=== PATIENT | female | born 1950 | race African-American/Black ===

== ENCOUNTER → 2016-05-01 | Emergency (ER) | payer MEDICARE, MEDICAID ==
[~2016-05-01] VITALS: Ht 157.5 cm; Wt 72.6 kg
[~2016-05-01] MED LIST: ACETAMINOPHEN-1 EAC2 ORAL; ALBUTEROL SULF8.5 GM INH; ALLOPURINOL100 M1 ORAL; CARVEDILOL25 MG ORAL; COLCHICINE0.6 MG ORAL; DESCOVY 200-251 EACH PO; DIPHENHYDRAMINE25 M1 ORAL; EDURANT25 MG PO; FUROSEMIDE80 MG ORAL; IMDUR30 MG ORAL; INDOMETHACIN75 MG ORAL; LANOXIN125 MCG ORAL; LEVAQUIN500 MG ORAL; LIDOCAINE VISCO20 ML PO; LISINOPRIL5 MG ORAL; METOPROLOL SUCC50 MG ORAL; NEVIRAPINE200 MG ORAL; NORCO 5-325 TA1 EACH ORAL; NYSTATIN100000 UN1 ORAL; PRADAXA150 MG ORAL; PREDNISONE20 MG ORAL; PROMETHAZINE-C118 M1 ORAL; PredniSONE 20mg tab ORAL ONE; SPIRONOLACTONE25 MG ORAL; TRUVADA1 TAB ORAL; VICODIN ES 7.51 EACH ORAL; VITAMIN D350000 UNIT ORAL
[2016-05-02 00:02] VITALS: BP_SYST 101; BP_SYST 99; BP_DIAS 68
--- NOTE | 2016-05-02 04:16 | Emergency Room Report ---
History of Present Illness General Chief Complaint: Skin Rash/Abscess Source: Patient Present Illness HPI 65-year-old female present to ED complaining of rash and itchiness. Patient states symptoms started yesterday after she started some new antibiotics that she was prescribed after receiving endoscopy. Patient was started on Levaquin and doxycycline. Patient notes allergies to multiple antibiotics. Patient notes itchiness. Notes rash to arms and face. denies any swollen lips are swollen tongue. Denies any shortness of breath or difficulty breathing. No other aggravating relieving factors. Denies any other associated symptom Allergies: Coded Allergies: CARBAMAZEPINE (Verified Allergy, Intermediate, 09/23/12) MADE SKIN PEEL SULFAMETHOXAZOLE (Verified Allergy, Intermediate, Rash, 09/23/12) TRIMETHOPRIM (Verified Allergy, Intermediate, Rash, 09/23/12) ERYTHROMYCIN BASE (Verified Allergy, Unknown, SKIN SLOUGHING, 11/17/10) PENICILLIN (Verified Allergy, Unknown, 01/24/15) PENICILLINS (Verified Allergy, Unknown, RASH, 11/17/10) SULFA (SULFONAMIDE ANTIBIOTICS) (Verified Allergy, Unknown, RASH, 11/17/10) Patient History Past Medical History: CHF, HIV Past Surgical History: none, pacemaker Pertinent Family History: none Social History: Denies: alcohol use, drug use, smoking Last Menstrual Period: NA Now: No Immunizations: UTD Reviewed Nursing Documentation: PMH: Agreed, PSxH: Agreed Nursing Documentation-PMH Hx Cardiac Problems: Yes - CHF, ITP, HIV Hx Hypertension: Yes - CHF Hx Pacemaker: Yes - DEFIBRILLATOR Hx Asthma: No Hx COPD: Yes Hx Diabetes: No Hx Cancer: No Hx Dialysis: No Hx Neurological Problems: Yes Hx Cerebrovascular Accident: No Hx Transient Ischemic Attacks: No Hx Dementia: No Hx Alzheimer's Disease: No Hx Parkinson's Disease: No Hx Meningitis: No Hx Encephalitis: No Hx Seizures: Yes - 10 years ago Hx Epilepsy: Yes Hx Multiple Sclerosis: No Hx Cerebral Palsy: No Hx Amyotrophic Lat Sclerosis: No Hx Guillian-[place] Syndrome: No Hx Paralysis: No Hx Peripheral Neuropathy: No Hx Spinal Cord Injury: No Hx Head Trauma: No Hx Traumatic Brain Injury: No Hx Memory Loss: No Hx Concentration Difficulty: No Hx Speech Problem: No Hx Tremors: No Hx Vertigo: No Hx Dizziness: No Hx Syncope: No Hx Headaches: No Hx Aphasia: No Hx Dysphasia: No Hx Weakness: No Hx Fatigue: No Hx Neurologic Surgery: No Hx Brain Shunt: No Review of Systems All Other Systems: negative except mentioned in HPI Physical Exam Vital Signs Date Time Temp Pulse Resp B/P Pulse Ox O2 Delivery O2 Flow Rate FiO2 05/01/16 23:30 97.7 88 18 99/68 96 Room Air Sp02 EP Interpretation: reviewed, normal General Appearance: no apparent distress, alert, GCS 15, non-toxic Head: normocephalic Eyes: bilateral eye PERRL, bilateral eye normal inspection ENT: normal ENT inspection Neck: normal inspection Respiratory: normal inspection Cardiovascular #1: normal inspection Gastrointestinal: normal inspection Rectal: deferred Genitourinary: no CVA tenderness Musculoskeletal: normal inspection Neurologic: alert, oriented x3, responsive, motor strength/tone normal, sensory intact, speech normal Psychiatric: normal inspection Skin: other - urticaria noted to arms, chest, neck Lymphatic: normal inspection Medical Decision Making Diagnostic Impression: Primary Impression: Allergic reaction caused by a drug Qualified Codes: T78.40XA - Allergy, unspecified, initial encounter ER Course Hospital Course 65-year-old female presents to ED complaining of itchiness and rash to face, chest and arms Differential diagnoses include: Cellulitis, dermatitis, insect bite, abscess Clinical course Patient placed on stretcher. After initial history, physical exam reveals an elderly female in no acute distress. On exam is evidence of urticaria. no airway compromise. I instructed patient to stop the antibiotics and will require followup to receive new antibiotics. We will treat with Benadryl and prednisone Diagnosis - allergic reaction caused by drug stable and discharged to home with prescription for benedryl, prednisone. Instructed to followup with PMD. Instructed return to ED if symptoms recur or worsen Last Vital Signs Date Time Temp Pulse Resp B/P Pulse Ox O2 Delivery O2 Flow Rate FiO2 05/02/16 00:02 97.7 84 18 101/68 96 Room Air Status: improved Disposition: HOME, SELF-CARE Condition: Stable Scripts Diphenhydramine Hcl* (DIPHENHYDRAMINE HCL*) 25 Mg Capsule 25 MG ORAL Q6H Y for Itching, #30 CAP 0 Refills Prov: AUTUMN BEY M.D. 05/02/16 Prednisone* (PREDNISONE*) 20 Mg Tablet 40 MG ORAL DAILY, #10 TAB Prov: AUTUMN BEY M.D. 05/02/16 Referrals: MANE PASTOR (PCP) Patient Instructions: Antibiotic Medicine AUTUMN BEY M.D. May 02, 2016 04:16
== END | disposition home or self-care (01) ==
LOC: EMR 23:50
DX: T78.40XA Allergy, unspecified, initial encounter (principal); X58.XXXA Exposure to other specified factors, initial encounter; Z88.1 Allergy status to other antibiotic agents; Z88.2 Allergy status to sulfonamides; Z88.0 Allergy status to penicillin; Z88.8 Allergy status to other drugs, medicaments and biological substances; I50.9 Heart failure, unspecified; Z95.0 Presence of cardiac pacemaker; D69.3 Immune thrombocytopenic purpura; G40.909 Epilepsy, unspecified, not intractable, without status epilepticus; L50.9 Urticaria, unspecified
CPT/HCPCS: 99284

== ENCOUNTER 2017-06-28 13:19 | Outpatient (CLI) | payer MEDICARE, MEDICAID ==
[~2017-06-28 13:19] MED LIST changes: -PredniSONE 20mg tab ORAL ONE
--- NOTE | 2017-06-28 15:25 | Diagnostic Imaging Report ---
Indication: Cough Comparison: 08/18/2015 2 views of the chest obtained. No definite infiltrate or pulmonary vascular congestion identified. Pacemaker noted on the left. The heart is enlarged. The aorta is mildly enlarged consistent with atherosclerotic vascular disease. The bones are osteopenic. Impression: No acute disease
== END 2017-06-28 15:19 | disposition home or self-care (01) ==
LOC: RAD 13:19
DX: J40 Bronchitis, not specified as acute or chronic (principal); I51.7 Cardiomegaly; Z95.0 Presence of cardiac pacemaker; M85.80 Other specified disorders of bone density and structure, unspecified site
CPT/HCPCS: 71046

== ENCOUNTER → 2019-07-13 | Emergency (ER) | payer MEDICARE, MEDICAID ==
--- NOTE | 2019-07-13 15:45 | Emergency Room Report ---
History of Present Illness General Chief Complaint: To Be Triaged Present Illness HPI This patient left prior to evaluation by medical provider. Allergies: Coded Allergies: CARBAMAZEPINE (Verified Allergy, Intermediate, 09/23/12) MADE SKIN PEEL SULFAMETHOXAZOLE (Verified Allergy, Intermediate, Rash, 09/23/12) TRIMETHOPRIM (Verified Allergy, Intermediate, Rash, 09/23/12) ERYTHROMYCIN BASE (Verified Allergy, Unknown, SKIN SLOUGHING, 11/17/10) PENICILLIN (Verified Allergy, Unknown, 01/24/15) PENICILLINS (Verified Allergy, Unknown, RASH, 11/17/10) SULFA (SULFONAMIDE ANTIBIOTICS) (Verified Allergy, Unknown, RASH, 11/17/10) Nursing Documentation-PMH Hx Cardiac Problems: Yes - CHF, ITP, HIV Hx Hypertension: Yes - CHF Hx Pacemaker: Yes - DEFIBRILLATOR Hx Asthma: No Hx COPD: Yes Hx Diabetes: No Hx Cancer: No Hx Dialysis: No Hx Neurological Problems: Yes Hx Cerebrovascular Accident: No Hx Transient Ischemic Attacks: No Hx Dementia: No Hx Alzheimer's Disease: No Hx Parkinson's Disease: No Hx Meningitis: No Hx Encephalitis: No Hx Seizures: Yes - 10 years ago Hx Epilepsy: Yes Hx Multiple Sclerosis: No Hx Cerebral Palsy: No Hx Amyotrophic Lat Sclerosis: No Hx Guillian-[place] Syndrome: No Hx Paralysis: No Hx Peripheral Neuropathy: No Hx Spinal Cord Injury: No Hx Head Trauma: No Hx Traumatic Brain Injury: No Hx Memory Loss: No Hx Concentration Difficulty: No Hx Speech Problem: No Hx Tremors: No Hx Vertigo: No Hx Dizziness: No Hx Syncope: No Hx Headaches: No Hx Aphasia: No Hx Dysphasia: No Hx Weakness: No Hx Fatigue: No Hx Neurologic Surgery: No Hx Brain Shunt: No Medical Decision Making PA Attestation Dr. Kohler is my supervising Physician whom patient management has been discussed with. ER Course This patient left prior to evaluation by medical provider. Disposition: LEFT W/OUT BEING SEEN Condition: Unknown Referrals: NOT CHOSEN IPA/,REFERRING (PCP) Luna Mendez July 13, 2019 15:45
== END | disposition left against medical advice (07) ==
LOC: EMR 15:36
DX: Z53.21 Procedure and treatment not carried out due to patient leaving prior to being seen by health care provider (principal)

== ENCOUNTER 2019-07-16 08:42 | Emergency (ER) | payer MEDICARE, MEDICAID ==
[~2019-07-16] VITALS: Ht 157.5 cm; Wt 65.8 kg
--- NOTE | 2019-07-16 09:03 | NUR ---
ED Nurse Note: Patient walked in the ER with complaints of abdominal pain on lower mid area. Denies nausea, vomiting and diarrhea. Patient is ambulatory and AAOx4. Patient doesnt complaint of any chest pain and SOB as of the moment. Patient stated she had a covid test done last month but never had the results. No flu like symptoms, afebrile.
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
--- NOTE | 2019-07-16 09:30 | NUR ---
ED Nurse Note: IV line established. Blood specimen sent
[2019-07-16 09:31] VITALS: BP 134/84
--- NOTE | 2019-07-16 09:36 | NUR ---
ED Nurse Note: Patient went to CT on [place]
[2019-07-16 09:40] LABS: BASOPHILS % (AUTO) 1.4 % (0.0-2.0); HEMATOCRIT 41.2 % (37.0-47.0); HEMOGLOBIN 12.7 G/DL (12.0-16.0); LYMPHOCYTES % (AUTO) 40.5 % (20.0-45.0); MEAN CORPUSCULAR VOLUME 103 FL (80-99); MONOCYTES % (AUTO) 6.8 % (1.0-10.0); NEUTROPHILS % (AUTO) 50.2 % (45.0-75.0); PLATELET COUNT 178 K/UL (150-450); RED BLOOD COUNT 4.02 M/UL (4.20-5.40); RED CELL DISTRIBUTION WIDTH 17.1 % (11.6-14.8); WHITE BLOOD COUNT 12.7 K/UL (4.8-10.8)
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
[2019-07-16 10:19] LABS: ALANINE AMINOTRANSFERASE 31 U/L (12-78); ALBUMIN 3.3 G/DL (3.4-5.0); ALBUMIN/GLOBULIN RATIO 0.7 (1.0-2.7); ALKALINE PHOSPHATASE 120 U/L (46-116); ANION GAP 6 mmol/L (5-15); ASPARTATE AMINO TRANSFERASE 64 U/L (15-37); BILIRUBIN,TOTAL 0.5 MG/DL (0.2-1.0); BLOOD UREA NITROGEN 27 mg/dL (7-18); CALCIUM 9.4 MG/DL (8.5-10.1); CARBON DIOXIDE 24 MMOL/L (21-32); CHLORIDE 108 MMOL/L (98-107); CREATININE 1.2 MG/DL (0.55-1.30); SODIUM 138 MMOL/L (136-145)
[2019-07-16 10:30] LABS: POTASSIUM 6.8 MMOL/L (3.5-5.1)
[2019-07-16 10:35] VITALS: BP 127/80
--- NOTE | 2019-07-16 10:35 | NUR ---
ELOPEMENT: Patient eloped at the ER. ERMD aware and notiied. Patient is AAOx4. All of patients belongings was taken by the patient. Vital signs stable. Patient not in distress. IV site and ID band removed.
== END 2019-07-16 10:35 | disposition left against medical advice (07) ==
LOC: EMR 09:00
DX: R10.33 Periumbilical pain (principal); B20 Human immunodeficiency virus [HIV] disease; I11.0 Hypertensive heart disease with heart failure; I50.9 Heart failure, unspecified; Z95.810 Presence of automatic (implantable) cardiac defibrillator; J44.9 Chronic obstructive pulmonary disease, unspecified; G40.909 Epilepsy, unspecified, not intractable, without status epilepticus; D69.3 Immune thrombocytopenic purpura; Z88.0 Allergy status to penicillin; Z88.1 Allergy status to other antibiotic agents; Z88.2 Allergy status to sulfonamides; Z88.8 Allergy status to other drugs, medicaments and biological substances; Z20.828 Contact with and (suspected) exposure to other viral communicable diseases
CPT/HCPCS: 36415; 74176; 80053; 83690; 83735; 85025; 99284

== ENCOUNTER 2019-08-13 10:06 | Emergency (ER) | payer MEDICARE, MEDICAID ==
[~2019-08-13] VITALS: Ht 157.5 cm; Wt 72.6 kg
[2019-08-13 10:19] VITALS: BP 98/64
[2019-08-13] MEDS ORDERED: TYLENOL325 MG ORAL (10:24)
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
[2019-08-13 11:21] VITALS: BP 101/68
== END 2019-08-13 11:23 | disposition home or self-care (01) ==
LOC: EMR 10:28
DX: R52 Pain, unspecified (principal); I50.9 Heart failure, unspecified; I10 Essential (primary) hypertension; J44.9 Chronic obstructive pulmonary disease, unspecified; Y04.2XXA Assault by strike against or bumped into by another person, initial encounter; Y93.9 Activity, unspecified; Y92.9 Unspecified place or not applicable; Z88.0 Allergy status to penicillin; Z88.2 Allergy status to sulfonamides; Z88.1 Allergy status to other antibiotic agents; Z88.8 Allergy status to other drugs, medicaments and biological substances; Z21 Asymptomatic human immunodeficiency virus [HIV] infection status; Z95.810 Presence of automatic (implantable) cardiac defibrillator
CPT/HCPCS: 70450; 99284